=== PATIENT | male | born 1985 | race African-American/Black ===

== ENCOUNTER 2023-03-08 18:06 | Emergency (ER) | payer MEDICAID ==
[~2023-03-08] VITALS: Ht 177.8 cm; Wt 78.0 kg
[2023-03-08 18:08] VITALS: BP 131/87; PULSE 90; RESP 20; TEMP 98; O2SAT 99
[2023-03-08] MEDS ORDERED: OLANZAPINE 10MG TABLET PO SCH (18:30)
[2023-03-08] MEDS ORDERED: LORAZEPAM 1MG TABLET PO ONE (18:30)
[2023-03-08 18:44] LABS: BASOPHILS % 0.3 % (0.0-2.0); EOSINOPHILS % 5.9 % (0.0-5.0); HEMATOCRIT. 32.1 % (42.0-52.0); HEMOGLOBIN. 10.9 g/dL (14.0-18.0); LYMPHOCYTES % 8.8 % (20.0-50.0); MEAN CORPUSCULAR HEMOGLOBIN 30.8 pg (28.0-32.0); MEAN CORPUSCULAR HGB CONC 33.9 g/dL (31.0-37.0); MEAN CORPUSCULAR VOLUME 90.7 fL (80.0-94.0); MEAN PLATELET VOLUME 7.3 fl (7.4-10.4); MONOCYTES % 13.1 % (2.0-8.0); NEUTROPHILS % 71.9 % (40.0-76.0); PLATELET 166 x1000/uL (130-400); RED BLOOD CELL COUNT 3.54 mill/uL (4.7-6.1); RED CELL DISTRIBUTION WIDTH 15.8 % (11.6-14.6); WHITE BLOOD COUNT 9.8 x1000/uL (4.5-11.0)
[2023-03-08 18:47] LABS: CHLORIDE 103 mEq/L (98-107); INDEX HEMOLYSI 1 (1-3); INDEX ICTERIC 1 (1-4); INDEX LIPEMIC 1 (1-3); SODIUM 133 mEq/L (136-145)
[2023-03-08 18:55] LABS: ALANINE AMINOTRANSFERASE 23 IU/L (13-61); ALBUMIN 3.6 g/dL (3.4-5.0); ASPARTATE AMINOTRANSFERASE 30 IU/L (15-37); CALCIUM 7.6 mg/dL (8.5-10.1); CARBON DIOXIDE 24 mEq/L (21-32); CREATININE 0.9 mg/dL (0.6-1.3); ETHANOL BLOOD < 10 mg/dL (-10); GLUCOSE 97 mg/dL (70-105); UREA NITROGEN BLOOD 18 mg/dL (7-21)
[2023-03-08 18:56] LABS: BILIRUBIN TOTAL 0.9 mg/dL (0.1-1.0); PROTEIN TOTAL 7.8 g/dL (6.0-8.3)
[2023-03-08 18:58] LABS: ACETAMINOPHEN <2 ug/mL ug/mL (10-30)
[2023-03-08 19:05] LABS: POTASSIUM 2.7 mEq/L (3.5-5.1)
[2023-03-08] MEDS ORDERED: MAGNESIUM OXIDE 400MG TABLET PO SCH (19:15)
[2023-03-08] MEDS ORDERED: POTASSIUM CHLORIDE 20MEQ TABLET SR PO ONE (19:15)
[2023-03-08] MEDS ORDERED: LORAZEPAM 1MG TABLET PO NR (19:30)
[2023-03-08] MEDS ORDERED: POTASSIUM CHLORIDE 20MEQ TABLET SR PO NR (19:30)
== END 2023-03-08 20:07 | disposition left against medical advice (07) ==
LOC: ER 18:06
DX: F29 Unspecified psychosis not due to a substance or known physiological condition (principal); E87.6 Hypokalemia; F20.9 Schizophrenia, unspecified
CPT/HCPCS: 36415; 80053; 80307; 80320; 80329; 83735; 85025; 93005; 99284; G0480